=== PATIENT | female | born 1990 | race Caucasian/White ===

== ENCOUNTER 2021-02-20 06:48 | Day surgery (SDC) | payer BC ==
--- NOTE | 2021-02-19 17:51 | PCM.HP ---
H&P History of Present Illness - General Date of Service: 02/20/21 Source of Information: Patient History Limitations: Reports: No Limitations - History of Present Illness Initial Comments - Free Text/Narative: 30 y.o. 2 Para 2-0-0-2 female with missing IUD strings and 2 unsuccessful attempts to remove the Mirena IUD it in the office. She desires to have it removed in the operating room with dilation and curettage under anesthesia and if not in the uterus will do a laparoscopy to remove it from the peritoneal cavity. - Related Data Allergies/Adverse Reactions: Allergies Allergy/AdvReac Type Severity Reaction Status Date / Time No Known Allergies Allergy Verified 02/20/21 07:02 Home Medications: Home Meds Escitalopram [Lexapro] 20 mg PO DAILY 02/19/21 [History] Zolpidem [Ambien] 5 mg PO .BEDTIME PRN 02/19/21 [History] levonorgestreL [Mirena] 1 each IUTERINE DAILY 02/19/21 [History] Past Medical History - Past Health History Medical/Surgical History: Denies Medical/Surgical History HEENT History: Reports: None Cardiovascular History: Reports: None Respiratory History: Reports: None Gastrointestinal History: Reports: None Genitourinary History: Reports: None [employer]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 : 2 Para: 2 LMP (Approximate): Unknown (Mirena IUD in place no periods in a while) Musculoskeletal History: Reports: None Neurological History: Reports: None Psychiatric History: Reports: Depression Endocrine/Metabolic History: Reports: None Hematologic History: Reports: None Immunologic History: Reports: None Oncologic (Cancer) History: Reports: None Dermatologic History: Reports: None - Infectious Disease History Infectious Disease History: Reports: None - Past Surgical History Head Surgeries/Procedures: Reports: None HEENT Surgical History: Reports: Tonsillectomy Cardiovascular Surgical History: Reports: None Respiratory Surgical History: Reports: None GI Surgical History: Reports: Cholecystectomy Female Surgical History: Reports: Section Endocrine Surgical History: Reports: None Neurological Surgical History: Reports: None Musculoskeletal Surgical History: Reports: None Oncologic Surgical History: Reports: None Dermatological Surgical History: Reports: None - Past Imaging History Past Imaging History: Reports: Ultrasound Social & Family History - Family History HEENT: Reports: None Cardiac: Reports: Hypertension Respiratory: Reports: None GI: Reports: None : Reports: None OBGYN: Reports: Endometriosis Musculoskeletal: Reports: None Neurological: Reports: CVA Psychiatric: Reports: Anxiety, Depression Endocrine/Metabolic: Reports: Diabetes, type II Hematologic: Reports: None Immunologic: Reports: None Dermatologic: Reports: None Oncologic: Reports: None - Tobacco Use Tobacco Use Status *Q: Never Tobacco User Tobacco Use Within Last Twelve Months: No - Caffeine Use Caffeine Use: Reports: Coffee, Soda - Alcohol Use Alcohol Use History: Yes Total Drinks Per Week Comment: 2-3 drinks per week Alcohol Use in Last Twelve Months: Yes - Recreational Drug Use Recreational Drug Use: No Drug Use in Last 12 Months: No - Sexual History Sexual History: Reports: Single Partner, Vaginal [place] - Living Situation & Occupation Living situation: Reports: 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 General: Reports: No Symptoms HEENT: Reports: No Symptoms Pulmonary: Reports: No Symptoms Cardiovascular: Reports: No Symptoms Gastrointestinal: Reports: No Symptoms Genitourinary: Reports: No Symptoms Musculoskeletal: Reports: No Symptoms Skin: Reports: No Symptoms Psychiatric: Reports: No Symptoms Neurological: Reports: No Symptoms Hematologic/Lymphatic: Reports: No Symptoms Immunologic: Reports: No Symptoms Exam - Exam Exam: See Below - Vital Signs Vital Signs: BP- 118/78 R- 18 P- 86 T- 97.9 Weight: 226 lb 6.4 oz - Exam General: Alert, Oriented, Cooperative HEENT: Conjunctiva Clear, EOMI, Mucosa Moist & Datto, Nares Patent Neck: Supple Lungs: Clear to Auscultation, Normal Respiratory Effort Cardiovascular: Regular Rate, Regular Rhythm GI/Abdominal Exam: Normal Bowel Sounds, Soft, Non-Tender, No Organomegaly, No Distention, No Mass (Female) Exam: Normal Bimanual Exam Rectal (Female) Exam: Deferred Back Exam: Normal Inspection, Full Range of Motion Extremities: Normal Inspection, Normal Range of Motion, Non-Tender, No Pedal Edema, Normal Capillary Refill Skin: Warm, Dry, Intact Neurological: Strength Equal Bilateral, Normal Gait, Normal Speech, Normal Tone Neuro Extensive - Mental Status: Alert, Oriented x3, Normal Mood/Affect, Normal Cognition Psychiatric: Alert, Normal Affect, Normal Mood - Patient Data Lab Results Last 24 hrs: Quantitative HCG Less than 1 U/S- IUD near fundus of uterus likely in the uterine cavity. 2.4 cm left ovarian lesion has apperance of pole. Result Diagrams: 02/20/21 07:04 Problem List Initiated/Reviewed/Updated: Yes Assessment/Plan Comment:: ASSESSMENT: Missing Mirena IUD strings Two unsuccessful attempts at removing the IUD in the office PLAN: Dilation and curettage with removal of Mirena IUD. Possible laparoscopy with removal of IUD from peritoneal cavity. Risks, benefits, complications of procedures discussed with the patient including perforation of the uterus, infection, bleeding, injury to bowel, bladder, blood vessels, other organs, scarring despite this she still wants the procedures accomplished. All questions answered. Informed consent obtained and signed.
[~2021-02-20 06:48] MED LIST: Lactated Ringers 1,000 ML IV SCH; Sodium Chloride 0.9% 10 ML Syringe FLUSH PRN
[2021-02-20] MEDS ORDERED: Lactated Ringers 1,000 ML IV SCH (07:00)
[2021-02-20] MEDS ORDERED: ceFAZolin 2 GM in Premix Bag 1 BAG IV ONE (07:45)
[2021-02-20] MEDS ORDERED: Acetaminophen 325 MG Tab PO PRN (08:35)
[2021-02-20] MEDS ORDERED: Acetaminophen/oxyCODONE 325-5 MG Tab PO PRN (09:00)
[2021-02-20] MEDS ORDERED: Escitalopram 10 MG Tab PO SCH (09:00)
[2021-02-20] MEDS ORDERED: Ondansetron 4 MG/2 ML SDV IVPUSH PRN (09:00)
[2021-02-20] MEDS ORDERED: Ketorolac 30 MG/ML SDV IM SCH (09:00)
--- NOTE | 2021-02-20 09:04 | OR ---
DATE: 02/20/2021 PREOPERATIVE DIAGNOSES: 1. Missing IUD strings with Mirena in the uterus. 2. Unsuccessful attempts at removing the Mirena IUD in the office x2. POSTOPERATIVE DIAGNOSES: 1. Missing IUD strings with Mirena in the uterus. 2. Unsuccessful attempts at removing the Mirena IUD in the office x2. PROCEDURE: Exam under anesthesia, dilation of the cervix with removal of the Mirena IUD. COMPLICATIONS: None. ANESTHESIA: General endotracheal anesthesia. EBL: 1 mL. FLUIDS: Crystalloid/LR. DRAINS: None. PATHOLOGY: None. FINDINGS: Normal cervix. Mirena IUD adhered to the posterior wall of the endometrial cavity. DETAILS OF PROCEDURE: The patient was taken back to the operating room with an IV running. She was placed supine on the operating room table. After adequate general endotracheal anesthesia was obtained, she was prepped and draped in the usual sterile fashion in the dorsal lithotomy position. A weighted speculum was placed in the posterior vaginal vault. The anterior lip of the cervix was grasped with a single-tooth tenaculum. The cervix was then dilated to a #10 Hegar dilator. A polyp forceps was then used to go into the uterus and I was able to grasp the uterus at the posterior wall and tease the Mirena IUD out without difficulty. Mirena IUD and strings were completely removed. The patient tolerated the procedure quite well. All instruments removed from the vagina. Excellent hemostasis was noted. The patient received 2 g of Ancef IV before the procedure. The patient did receive Toradol 30 mg IV at the end of the procedure. All sponges, needle, and instrument counts were correct by the nurse in attendance x2. The patient was taken to PACU awake and in stable condition. [facility] [place] /[id number]
== END 2021-02-20 11:38 | disposition home or self-care (01) ==
LOC: DL.SDS 06:48
PROVIDERS: ATTEND Obstetrics & Gynecology
DX: T83.32XA Displacement of intrauterine contraceptive device, initial encounter (principal); Z79.899 Other long term (current) drug therapy; Z98.890 Other specified postprocedural states; Z87.891 Personal history of nicotine dependence; Z01.812 Encounter for preprocedural laboratory examination; Z20.822 Contact with and (suspected) exposure to COVID-19
CPT/HCPCS: 36415; 58301; 85025; 86850; 86900; 86901; 87635; J0690; J7120; U0002